=== PATIENT | female | born 1985 | race Caucasian/White ===

== ENCOUNTER 2019-11-30 09:15 | Outpatient (CLI) | payer MEDICAID | END 2019-11-30 23:59 | disposition home or self-care (01) | LOC: CARD DIAG 09:15 | DX: Z01.812 Encounter for preprocedural laboratory examination (principal); I49.8 Other specified cardiac arrhythmias | CPT/HCPCS: 93005 ==

== ENCOUNTER 2020-10-25 12:30 | Outpatient (CLI) | payer OTHER | END 2020-10-25 23:59 | disposition home or self-care (01) | LOC: CARD DIAG 12:30 | DX: Z01.818 Encounter for other preprocedural examination (principal); G56.01 Carpal tunnel syndrome, right upper limb; R79.89 Other specified abnormal findings of blood chemistry | CPT/HCPCS: 93005 ==

== ENCOUNTER 2021-01-09 08:57 | Emergency (ER) | payer MEDICAID, OTHER ==
[~2021-01-09] VITALS: Ht 167.6 cm; Wt 136.4 kg
[2021-01-09 09:11] VITALS: BP 148/91
[2021-01-09] MEDS ORDERED: ketorolac trometh. 30mg/ml inj. IM ONE (11:20)
== END 2021-01-09 11:33 | disposition home or self-care (01) ==
LOC: ER 08:57
DX: M25.461 Effusion, right knee (principal); M25.561 Pain in right knee
CPT/HCPCS: 96372; 99283; J1885